=== PATIENT | male | born 1995 | race Caucasian/White ===

== ENCOUNTER → 2018-12-16 | Outpatient (CLI) | payer BC ==
--- NOTE | 2018-12-17 07:28 | MR ---
EXAMINATION TYPE: MR shoulder LT wo con DATE OF EXAM: 12/16/2018 COMPARISON: NONE HISTORY: Left shoulder pain with difficulty raising arm overhead for one month after fall downstairs injury. TECHNIQUE: Multiplanar, multisequence imaging of the left shoulder is performed without contrast. FINDINGS: Examination is suboptimal due to patient motion related to pain, patient unable to continue for repeat imaging. Rotator Cuff: There is marked increased signal in distal supraspinatus and infraspinatus tendons with articular surface tear is identified most prominent involving the infraspinatus tendon sagittal imag e 10. Subscapularis tendon is intact. Rotator cuff muscle bulk is preserved. Acromioclavicular Joint: Moderate narrowing of the acromioclavicular joint with capsular hypertrophy, loss of underlying fat plane. Glenohumeral Joint: Small to moderate glenohumeral joint effusion with mild narrowing. No significant spurring. Labrum: The labrum appears grossly intact given limitation of non-arthrogram study. Biceps Tendon: The long head of biceps is in normal location within bicipital groove. Bone marrow signal: There is a Hill-Sachs type deformity involving the superior lateral humeral head. Other: There is adjacent irregularity and abnormal signal anterior inferior glenoid consistent with B ankart type lesion coronal image 14. IMPRESSION: 1. Significant tendinosis and articular surface tears of the supraspinatus and to a greater degree th e infraspinatus tendons. 2. MRI evidence of prior anterior dislocation with Hill-Sachs type deformity and associated Bankart t ype lesion. 3. Moderate AC joint arthropathy somewhat pronounced for patient's age with suggestion of underlying impingement.
== END | disposition home or self-care (01) ==
LOC: RADMRIMAIN 21:19
PROVIDERS: ATTEND Internal Medicine
DX: M19.012 Primary osteoarthritis, left shoulder (principal); M75.102 Unspecified rotator cuff tear or rupture of left shoulder, not specified as traumatic; S42.292A Other displaced fracture of upper end of left humerus, initial encounter for closed fracture; Z87.828 Personal history of other (healed) physical injury and trauma